=== PATIENT | female | born 1985 | race Hispanic/Latino ===

== ENCOUNTER 2025-02-23 16:45 | Emergency (ER) | payer BC ==
--- OUTSIDE RECORDS SUMMARY | 2025-02-23 16:49 | XMS REPORT | Continuity of Care Document ---
Author Name Unknown Address [address] [place] [address] [facility] Address [address] [place] [address] Care Team Providers Care Christian Education Director Name Role Phone Ernestine Reeder Attending Clinician Un available Ulises Quiroz Admitting Clinician Unavailable Payers Payer Name Policy Type Policy Number Effective Date Expirati on Date Source Problems Condition Name Condition Details Condition Category Status Onset Date Resolution Date Last Treatment Date Treating Clinician Comments Source Headache (finding) Headache (finding) Active Problem 01/13/2023 [facility] [place] Problem Active 2023-01-13 14:24:33 Kalie Agarwal Hypertensi ve disorder, systemic arterial (disorder) Hypertensi ve disorder, systemic arterial (disorder) Active Problem 01/13/2023 [facility] [place] Problem Active 2023-01-13 14:24:33 Kalie Agarwal Migraine (disorder) Migraine (disorder) Active Problem 01/13/2023 [facility] [place] Problem Active 2023-01-13 14:24:33 Memroscoe Agarwal Syncope (disorder) Syncope (disorder) Active Problem 01/13/2023 [facility] [place] Problem Active 2023-01-13 14:24:33 Memoria anthony Agarwal Allergies, Adverse Reactions, Alerts Allergy Name Allergy Type Status Severity Reaction(s) Onset Date Inactive Date Treating Clinician Comments Source No Known Allergie s DA Active U 2 00:00: 00 [facility] [place], [facility] No Known Medicati on Allergie s No Known Medicati on Allergie s Active Kalie Agarwal Social History Smoking Status Start Date Stop Date Source Tobacco smoking status 2022-08-30 21:23:57 [facility] [place] Medications Ordered Medication Name Filled Medication Name Start Date Stop Date Current Medication? 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 Kalie Agarwal Nebivolol 10 mg oral tablet 2021-10 16:39: 00 Yes TAKE ONE (1) TABLET(S) BY MOUTH ONCE A DAY NEEDED. Kalie Agarwal Ubrelvy 100 mg oral tablet 2021-10 16:39: 00 Yes 100 mg = 1 tab, PO, PRN, PRN Other -See Comment, # 16 tab, 0 Refill(s), For Migraine. May repeat dose after 2 hours. Max dose 200 mg/ 24 hours Kalie Agarwal Vital Signs Vital Name Observation Time Observation Value Comments S ource Systolic (mm Hg) 2022-08-30 21:23:00 [facility] Diastolic (mm Hg) 2022-08-30 21:23:00 [facility] Heart Rate 2022-08-30 21:23:00 [facility] Height 2022-08-30 21:23:00 5 [ft_i] [facility] [place] Weight 2022-08-30 21:23:00 [facility] [place] BMI Calculated 2022-08-30 21:23:00 [facility] Systolic (mm Hg) 2022-07-29 16:36:00 [facility] Diastolic (mm Hg) 2022-07-29 16:36:00 [facility] [place] Heart Rate 2022-07-29 16:36:00 [facility] [place] Height 2022-07-29 16:36:00 5 [ft_i] [facility] Weight 2022-07-29 16:36:00 [facility] [place] BMI Calculated 2022-07-29 16:36:00 [facility] Procedures Procedure Date / Time Performed Performing Clinician Source Chemodenervation of muscle(s); muscle(s) innervated by facial, trigeminal, cervical spinal and accessory nerves, bilateral (eg, for chronic migraine) 2023-01-10 16:08:00 [facility] [place] Thumb surgery [facility] Ashtyn nn Tubal ligation [facility] Herm sandoval Cerclage [facility] Marquise n Hysterectomy [facility] Marquise n Encounters Start Date/Time End Date/Time Encounter Type Admission Type Attending Clinicians Care Facility Care Department Encounter ID Source 2023-04-17 10:45:00 2023-04-17 10:45:00 Outpatient [facility] [id number] [facility]ie [facility] 2023-01-10 14:15:00 2023-01-11 04:59:59 Outpatient [facility] [place] [id number] Kalie l [facility] 2022-10-17 16:30:00 2022-10-18 05:59:59 [facility]patient [facility] [place] [id number] [facility]ie [facility] 2022-08-30 21:30:00 2022-08-31 05:59:59 Outpatient [facility] [place] [id number] [facility] [place] 2022-08-12 18:00:00 2022-08-13 04:59:59 Outpatient nullFlavo r [facility] [place] [id number] Kalie Agarwal 2022-07-29 16:15:00 2022-07-30 04:59:59 Outpatient nullFlavo r [facility] [place] [id number] Kalie Agarwal 2022-04-07 11:45:00 2022-04-07 11:45:00 Outpatient Ernestine Jones [facility] [id number] [facility] [place] 2022-04-07 11:45:00 2022-04-07 11:45:00 Outpatient Ernestine Jones [facility] [id number] [facility] [place] 2022-03-09 15:30:00 2022-03-09 15:30:00 Ambulatory Pre-Reg nullFlavo r [facility] [place] [id number] Kalie Agarwal Results Test Description Test Time Test Comments Results Result Co mments Source COVID 19 INHOUSE [id number] 15:15:00* Test Item Value Reference Range Interpretation Comme nts COVID 19 INHOUSE AG (test code = [id number]) NEGATIVE Negative Per mathematician , negative results should be treated aspresumptive and, if inconsistent with clinical signs andsymptoms or necessary for patient management, should betested with an alternative molecular assay. Negative resultsdo not preclude SARS-CoV-2 infection and should not be usedas the sole basis for patient management decisions. Negative results should be considered in the context of apatient's recent exposures, history, presence of clinicalsigns and symptoms consistent with COVID-19. CBC W/AUTO [id number] 15:06:00* Test Item Value Reference Range Interpretation Comme nts WHITE BLOOD CELL (test code = WBC) 7.8 K/mm3 3.5-11.0 N RED BLOOD CELL (test code = RBC) 4.57 M/mm3 4.70-6.10 L HEMOGLOBIN (test code = HGB) 13.7 G/DL 10.4-14.9 N HEMATOCRIT (test code = HCT) 40.9 % 31.5-44.1 N MEAN CELL VOLUME (test code = MCV) 89.5 Fl 84.5-98.6 N MEAN CELL HGB (test code = MCH) 30.0 pg 27.0-34.2 N MEAN CELL HGB CONCETRATION (test code = MCHC) 33.5 G/DL 31.5-34.0 N RED CELL DISTRIBUTION WIDTH (test code = RDW) 12.8 SD 11.5-14.5 N PLATELET COUNT (test code = PLT) 307 K/mm3 150-450 N MEAN PLATELET VOLUME (test c ode = MPV) 10.10 fL 7.0-10.5 N NEUTROPHIL % (test code = NT%) 66.1 % 40-76 N IMMATURE GRANULOCYTE % (test code = IG%) 0.1 % 0.0-5.0 N LYMPHOCYTE % (test code = LY%) 26.9 % 20.5-51.1 N MONOCYTE % (test code = MO%) 6.1 % 1.7-9.3 N EOSINOPHIL % (test code = EO%) 0.5 % 0.0-6.0 N BASOPHIL % (test code = BA%) 0.3 % 0.0-2.0 N NUCLEATED RBC % (test code = NRBC%) 0.0 /100WBC% 0.0-1.0 N NEUTROPHIL # (test code = NT#) 5.2 K/mm3 1.8-7.6 N IMMATURE GRANULOCYTE # (test code = IG#) 0.01 x10 3/uL 0.00-0.03 N LYMPHOCYTE # (test code = LY#) 2.1 K/mm3 0.6-3.2 N MONOCYTE # (test code = MO#) 0.5 K/mm3 0.3-1.1 N EOSINOPHIL # (test code = EO#) 0.0 K/mm3 0.0-0.4 N BASOPHIL # (test code = BA#) 0.0 K/mm3 0.0-0.1 N NUCLEATED RBC # (test code = NRBC#) 0.0 K/mm3 0.0-0.1 N MANUAL DIFF REQUIRED (test c ode = MDIFF) NO DIFF/SCN CRITERIA URINALYSIS [id number] 15:02:00* Test Item Value Reference Range Interpretation Comme nts UA GLUCOSE DIPSTICK (test code = DGLUU) NEGATIVE mg/dL NEG UA BILIRUBIN DIPSTICK (test code = BILU) NEGATIVE mg/dL NEG UA KETONE DIPSTICK (test code = KETU) NEGATIVE mg/dL NEG UA SPECIFIC GRAVITY (test code = SGU) 1.015 SG 1.005-1.030 UA BLOOD DIPSTICK (test code = AJ) TRACE mg/DL NEG A UA PH DIPSTICK (test code = JOSE) 7.0 pH UNITS 5.0-7.0 UA PROTEIN DIPSTICK (test code = PROU) NEGATIVE mg/dL NEG UA UROBILINIOGEN DIPSTICK (test code = URO) 0.2 mg/dL <2.0 UA NITRITE DIPSTICK (test code = CATHERINE) NEGATIVE SCREEN NEG UA LEUKOCYTE ESTERASE DIPSTICK (test code = LEUU) NEGATIVE Leuk/mcL NEGATIVE Urine Specimen Type: Clean CatchUR HCG [id number] 15:02:00* Test Item Value Reference Range Interpretation Comme nts UR HCG QUAL (test code = HCGQLU) NEGATIVE NEGATIVE Urine Specimen Type: Clean Catch Notes Date/Time Note Provider Source 2022-04-08 07:20:00 [id number] [place] [address] PATIENT NAME: GINO ALVAREZ ADMIT DATE: 04/07/22 ACCOUNT NO: [id number] ROOM NO: AGE: 36 REPORT TYPE: OPERATIVE REPORT SEX: F ADMITTING PHYSICIAN: ATTENDING PHYSICIAN: Ernestine Reeder MD OPERATION DATE: 04/07/2022 PREOPERATIVE DIAGNOSES: AUB-O/A and history of cervical dysplasia. POSTOPERATIVE DIAGNOSES: AUB-O/A and history of cervical dysplasia. PROCEDURES PERFORMED: Robotic-assisted total laparoscopic hysterectomy and bilateral salpingectomy. SURGEON: Ernestine Reeder MD [employer] ART[employer]ERY: Mario Marinelli. ANESTHESIA: General. SPECIMENS: Uterus and tubes. COMPLICATIONS: No complications. DRAINS: No drains. CONDITION: The patient's condition is stable. ESTIMATED BLOOD LOSS: 50 mL. FINDINGS: Normal ovaries. No endometriosis. URINE OUTPUT: 100 mL. FLUIDS: 1500 LR. INDICATIONS: The patient is a 36-year-old female who presented with significant bleeding, history of cervical insufficiency, cerclages and then due to cervical dysplasia had conization of her cervix. No current dysplasia. Endometrial sampling was negative for any atypia or malignancy. I discussed about all different options conservative including an ablation, IUD COCs, and hysterectomy. Given her previous issues with dysplasia as well as the significant amount of bleeding that she has, the patient preferred to proceed with hysterectomy. She had failed other conservative methods and measures in the past and was not interested in trying that anymore. After the consent was re-verified, she was taken back to the OR, placed in PATIENT NAME: GINO ALVAREZ supine fashion on the operating table. General anesthesia was given. She was placed in the dorsal lithotomy position in Cole stirrups. Abdomen, vulva, vagina, and perineum prepped and draped in sterile fashion. Russell was placed to drain the bladder and attached for retrograde filling. A large VCare introduced into the uterus and fixed in place. A 15 cm above the pubic symphysis slightly 4 cm above the upper border of the umbilicus, a midline incision was made 1 cm. Fascia was incised, tagged with 0 Vicryl sutures. Peritoneum entered sharply. S retractors were placed in the middle. Brennen was introduced and fixed in place. After adequate insufflation, the site of entry was checked as well and was unremarkable with the camera, upper abdominal survey was unremarkable as well. Two 8 ports were placed 10 cm lateral to the midline incision in the same horizontal plane and then triangulated right upper quadrant incision was made 8 mm for a 5 AirSeal port. The patient was placed in T-buhmi about 20 degrees. Then, the robot was docked, the camera was docked inserted, targeted, once the targeting was complete, the arms were docked as well. Then, the fenestrated bipolar and scissors were taken attached to electric current respectively and then they were positioned into the abdomen carefully under direct supervision. The ports were burped and once everything was ready moved on to the console. Thorough inspection of the peritoneal cavity was conducted and ovaries were unremarkable, tubes with evidence of tubal ligation and enlarged uterus, most likely a leiomyoma or an adenomyoma on the on the top right and no other peritoneal implants seen. Anatomy of the ureters undistorted, uterosacral ligaments undisturbed as well. Mesosalpinx was opened up. Tube was taken down with the help of the monopolar just to incise and open and separate the mesosalpinx, then similar dissection on the right side as well. Then, the peritoneum opened up inferior to the round ligament, opening up the bladder flap all the way to the opposite round ligament taken down the bladder on the anterior vaginal wall, exposing it ____ on the VCare cup. Then, posteriorly peritoneum was incised in the posterior aspect of the vaginal cuff between the two uterosacrals. Then, the scissors were swapped to a vessel to a vessel sealer. Tubes on both sides were taken and retrieved, then uteroovarian ligament and round ligament were taken down with the LigaSure on the left side. The dissection of the posterior peritoneum conducted all the way to the level of the uterosacral. Then broad ligament taken down and vessels skeletonized and exposed. Similar dissection was performed on the opposite side, taking down the utero-ovarian round, broad and exposing the vessels. The vessels were taken down with the help of the bipolar vessel sealer on both sides and this was swapped to scissors, then a cut was made in the medial aspect of the vessels and the cardinal ligaments and then the pedicle was taken down with the help of the bipolar tip all the way down and scissors used to cut down to expose the cup, first on the right side, then on the left side, then circumferential colpotomy performed with the monopolar hook blade, completed and connecting the anterior to posterior and specimen detached and pulled out through the vagina. There was excellent hemostasis. After irrigation and suction, the pneumo-occluder was placed. A 0 Vicryl simple sutures were placed at both PATIENT NAME: GINO ALVAREZ angles and not tied outside the angle for hemostasis. Then, V-Loc was taken in a continuous running fashion, completed closure and 2 layers. Thorough irrigation and suction were performed. All pedicles were hemostatic. No evidence of electrical, mechanical or thermal injury to the ureters. After coming back and scrubbing into the case, the ports were removed under direct vision, injected the areas with Marcaine at the start and the end of the case. Gas was desufflated through the AirSeal completely. All ports were removed. The fascial incision at the umbilicus was closed with the help of 0 Vicryl sutures tacked to the fascial edges tied to each other, then 4-0 Vicryl continuous for the closure of the supraumbilical incision and interrupted Vicryl sutures for the others. The pneumo-occluder and the Russell were removed. Instrument and sponge counts were correct at the end of case. The patient tolerated the procedure well. EBL was 50 mL. Urine output as dictated 100. She was recovered. Instrument and sponge counts were correct. She was taken back to the recovery room in stable condition after extubation in the OR. The patient's was debriefed about her procedure to his satisfaction. Dictated By: Ernestine Reeder MD WT: OP:LAMARIS/MIGUEL ANGEL/RUBIN Conf#: [id number]/DID#: [id number] Authenticated and Edited by Ernestine Reeder MD On 04/21/22 2:36:37 PM at 0239 PATIENT NAME: GINO ALVAREZ [facility] 2022-04-07 13:15:00 [facility] ([facility]) Brief Op Note REPORT#:[id number] REPORT STATUS: Signed DATE:04/07/22 TIME:1315 PATIENT: GINO ALVAREZ UNIT #: [id number] ROOM/BED: : 84 AGE: 36 SEX: F ATTEND: Ernestine Reeder MD [facility] AUTHOR: Ernestine Reeder MD * ALL edits or amendments must be made on the electronic/computer document * Op/Inv Proc Note - Brief Pre-procedure diagnosis: AUB-O/A, Hx of cervical dysplasia Post-procedure diagnosis: same as pre procedure dx Procedures performed: RTLH BS Primary Surgeon: mathew Headend Technician(s): mario marinelli Anesthesia: general anesthesia Findings: normal ovaries Complications: none Estimated blood loss in ml's: 50 Specimens removed/altered: uterus tubes Drain(s): None Fluids: 1500 LR Urine output: 100 Approach: laparoscopic, robotic Wound class: clean-contaminated Disposition: plan to D/C home Counts: Sponge count: correct Instrument count: correct Needle count: correct at 1532 RPT #: [id number] END OF REPORT HCAPM
[2025-02-23 17:35] LABS: Absolute Basophils 0.1 K/uL (0-0.5); Absolute Lymphocytes (CBC) 1.4 K/uL (0.7-4.9); Absolute Monocytes 0.3 K/uL (0.1-1.3); Absolute Neutrophil 7.1 K/uL (1.8-8.0); Basophils % 0.7 % (0-1.3); Eosinophils % 0.3 % (0-4.4); Hematocrit 41.1 % (36.0-45.0); Hemoglobin 14.4 g/dL (12.0-15.0); MCH 31.8 pg (27.0-35.0); MCHC 35.1 g/dL (32.0-36.0); MCV 90.5 fL (80-100); MPV 8.3 fL (7.6-11.3); Monocytes % 3.9 % (3.3-12.3); Neutrophils % 79.1 % (41.7-73.7); Platelets 376 thou/uL (152-406); RBC Red Blood Cell Count 4.54 M/uL (3.86-4.86); Red Cell Distribution Width 13.2 % (12.1-15.2)
[2025-02-23] MEDS ORDERED: KETOROLAC 30 MG/ML INJ ONE (17:37)
[2025-02-23] MEDS ORDERED: DIPHENHYDRAMINE 50 MG/ML VIAL ONE (17:37)
[2025-02-23] MEDS ORDERED: NA CHLORIDE 0.9% 50 ML ONE (17:38)
[2025-02-23] MEDS ORDERED: METOCLOPRAMIDE 10 MG/2mL INJ ONE (17:38)
[2025-02-23] MEDS ORDERED: NA CHLORIDE 0.9% 1,000 ML ONE (17:38)
[2025-02-23 17:50] LABS: Albumin 3.6 g/dL (3.4-5.0); Alkaline Phosphatase 64 U/L (45-117); Anion Gap 11.6 mEq/L (5.0-15.0); BUN Blood Urea Nitrogen 13 mg/dL (7-18); Bicarbonate 28 mEq/L (21-32); Bilirubin Total 0.2 mg/dL (0.2-1.0); Globulin 3.7 g/dL (2.3-3.5); Glomerular Filtration Rate 85 ml/min (=/>90); Glucose Level 116 mg/dL (74-106); Lipase 15 U/L (13-75); Potassium 3.6 mEq/L (3.5-5.1); Protein, Total 7.3 g/dL (6.4-8.2); Sodium Level 140 mEq/L (136-145)
[2025-02-23] MEDS ORDERED: MORPHINE 4 MG/ML SYR ONE (18:08)
[2025-02-23 18:32] LABS: ALT/SGPT < 14 U/L (13-56); AST/SGOT < 10 U/L (15-37)
[2025-02-23 19:43] LABS: Specific Gravity 1.025 (1.005-1.030); Sqamous Epithelial <5 /HPF (None Seen); Urine Bacteria None Seen /HPF (<20); Urine Bilirubin NEGATIVE (Negative); Urine Blood Negative (Negative); Urine Clarity Turbid (Clear); Urine Color Yellow (Yellow); Urine Culture Reflex Order NOT NEEDED; Urine Glucose NEGATIVE (Negative); Urine Ketones 2+ (Negative); Urine Microscopic Reflex YN ORDER UMIC; Urine Mucus 4+ /HPF (None Seen); Urine Nitrite NEGATIVE (Negative); Urine Protein TRACE (Negative); Urine Urobilinogen Normal (Normal); Urine WBC <5 /HPF (<5); Urine pH 6.5 (5.0-7.0)
[2025-02-23 19:44] LABS: Specific Gravity 1.025 (1.005-1.030)
--- NOTE | 2025-02-23 20:50 | RAD REPORT ---
EXAMINATION: Abdomen Pelvis W Contrast CLINICAL INDICATION: Female, 39 years old.lower abdomen pain TECHNIQUE: CT abdomen and pelvis was performed, after the administration of IV contrast, as per [facility] protocol. Axial, sagittal and coronal reconstructions were obtained. One or more of the following dose reduction techniques were used: Automated exposure control, adjustment of the mA and/o r kV according to patient size, and/or iterative reconstruction. Unless otherwise specified, incidental findings do not require dedicated imaging follow-up. [id number]. COMPARISON: No prior exam. FINDINGS: LOWER CHEST: No acute process identified.No significant pericardial effusion. UPPER GI: No significant abnormality. LIVER: No significant focal abnormality. GALLBLADDER/BILE DUCTS: No biliary ductal dilatation.? PANCREAS: No mass, ductal dilation, or esperanza-pancreatic fluid. SPLEEN: Unremarkable. ADRENALS: No adrenal masses. KIDNEYS AND URETERS: No hydronephrosis.Low density and/or too small to characterize renal lesions whi ch are statistically benign. ABDOMINAL AORTA AND OTHER VESSELS: Normal caliber aorta and IVC. PERITONEUM: Small volume of pelvic free fluid which is likely physiologic. LYMPH NODES: No pathologic lymphadenopathy. ABDOMINAL WALL: Unremarkable SMALL BOWEL/COLON: Small bowel has normal course and caliber. No colonic wall thickening or pericolon ic inflammatory changes.Normal appendix. URINARY BLADDER: Decompressed, not well assessed. REPRODUCTIVE ORGANS: Bilateral adnexal fullness likely some mildly enlarged ovaries with without smal l lesions which has been seen on prior imaging. This could be further evaluated with pelvic ultrasound if indicated. MUSCULOSKELETAL: No acute or suspicious osseous abnormality. ADDITIONAL FINDINGS: None. IMPRESSION: No acute findings within the abdomen or pelvis. Prominent ovaries bilaterally which was also present on the CT from 01/20/2023. Small volume of pelvic free fluid which is likely physiologic. If concern for an adnexal pathology, ultrasound could further evaluate.
--- NOTE | 2025-02-23 21:18 | ER ---
Nurse's Notes [facility] Name: Bruce Devries Age: 39 yrs Sex: Female : 1985 Arrival Date: 02/23/2025 Time: 16:45 Bed 15 Private MD: Diagnosis: Lower abdominal pain, unspecified;Nausea with vomiting, unspecified Presentation: 02/23 17:09 Chief complaint: Patient states: Lower abdominal pain and vomiting onset today. Pt cm10 states that standing makes the pain worse. Coronavirus screen: Client denies travel out of the [place] in the last 14 days. Ebola Screen: Patient denies travel to an Ebola-affected area in the 21 days before illness onset. Initial Sepsis Screen: Does the patient meet any 2 criteria? No. Patient's initial sepsis screen is negative. Does the patient have a suspected source of infection? No. Patient's initial sepsis screen is negative. Risk Assessment: Do you want to hurt yourself or someone else? Patient reports no desire to harm self or others. Onset of symptoms was February 23, 2025. 17:09 Method Of Arrival: Wheelchair cm10 17:09 Acuity: GINA 3 cm10 Triage Assessment: 17:10 General: Appears in no apparent distress. uncomfortable, Behavior is calm, cooperative. cm10 Neuro: No deficits noted. Level of Consciousness is awake, alert, obeys commands, Oriented to person, place, time, situation, Appropriate for age. Respiratory: No deficits noted. Airway is patent Respiratory effort is even, unlabored, Respiratory pattern is regular, symmetrical. DIRECTOR OF CORPORATE RESPONSIBILITY: 19:09 Not cp4 Historical: - Allergies: 17:10 No Known Allergies; cm10 - PMHx: 17:10 Hypertensive disorder; PCOS; cm10 - PSHx: 17:10 section; cm10 - Immunization history:: Adult Immunizations up to date. - Infectious Disease History:: Denies. - Social history:: Smoking status: Patient reports the use of cigarette tobacco products, smokes one pack cigarettes per day. Screenin:30 [facility] ED Fall Risk Assessment (Adult) History of falling in the last 3 months, db including since admission No falls in past 3 months (0 pts) Confusion or Disorientation No (0 pts) Intoxicated or Sedated No (0 pts) Impaired Gait No (0 pts) Mobility Assist Device Used No (0 pt) Altered Elimination No (0 pt) Score/Fall Risk Level 0 - 2 = Low Risk Oriented to surroundings, Maintained a safe environment. Abuse screen: Denies threats or abuse. Denies injuries from another. Nutritional screening: No deficits noted. Tuberculosis screening: No symptoms or risk factors identified. Assessment: 17:30 Reassessment: Patient appears in no apparent distress at this time. Patient and/or db family updated on plan of care and expected duration. Pain level reassessed. Patient is alert, oriented x 3, equal unlabored respirations, skin warm/dry/pink. General: Appears in no apparent distress. comfortable, Behavior is calm, cooperative. Pain: Complains of pain in head and abdomen. Neuro: Level of Consciousness is awake, alert, obeys commands, Oriented to person, place, time, situation. Cardiovascular: No deficits noted. Respiratory: Airway is patent Respiratory effort is even, unlabored, Respiratory pattern is regular, symmetrical. GI: Abdomen is flat, non-distended, Bowel sounds present X 4 quads. Abd is soft Reports lower abdominal pain. : No deficits noted. No signs and/or symptoms were reported regarding the genitourinary system. EENT: No deficits noted. No signs and/or symptoms were reported regarding the EENT system. 19:09 Reassessment: Patient appears in no apparent distress at this time. No changes from cp4 previously documented assessment. Patient and/or family updated on plan of care and expected duration. Pain level reassessed. Patient is alert, oriented x 3, equal unlabored respirations, skin warm/dry/pink. 19:53 Reassessment: Patient to CT. cp4 Vital Signs: 17:09 BP 139 / 96; Pulse 89; Resp 18; Temp 98.1(O); Pulse Ox 97% on R/A; Weight 65.77 kg; cm10 Height 5 ft. 1 in. ; Pain 10/10; 17:45 BP 154 / 107; Pulse 76; Resp 16; Pulse Ox 97% on R/A; db 18:00 BP 153 / 100; Pulse 91; Resp 18; Pulse Ox 100% on R/A; db 18:30 BP 141 / 78; Pulse 83; Resp 16; Pulse Ox 97% on R/A; db 20:00 BP 125 / 83; Pulse 91; Resp 16; Pulse Ox 98% ; cp4 21:52 BP 118 / 80; Pulse 78; Resp 16; Pulse Ox 99% ; cp4 17:09 Body Mass Index 27.40 (65.77 kg, 154.94 cm) cm10 17:09 Pain Scale: Adult cm10 ED Course: 16:48 Patient arrived in ED. al6 17:05 Bhargav Mckeon PA is PHCP. cp 17:05 Bryan Shukla MD is Attending Physician. cp 17:10 Triage completed. cm10 17:10 Arm band placed on right wrist. Patient placed in an exam room, on a stretcher. cm10 17:22 Initial lab(s) drawn, by me, sent to lab. Inserted saline lock: 20 gauge in right db antecubital area, using aseptic technique. Blood collected. Flushed with 10 mL NS. 18:04 Saadia Martínez, RN is Primary Nurse. db 18:30 Patient has correct armband on for positive identification. Bed in low position. Call db light in reach. Side rails up X 1. Provided Education on: MEDICATIONS AND LABS. Pulse ox on. NIBP on. Warm blanket given. Pillow given. 18:38 Radiology exam delayed due to test not completed at this time. sm9 19:09 Mariel Franklin is Primary Nurse. cp4 19:24 Radiology exam delayed due to test not completed at this time. sm9 19:25 Urine collected: clean catch specimen, tea colored. td1 20:31 CT Abd/Pelvis - IV Contrast Only In Process Unspecified. EDMS 22:00 No provider procedures requiring assistance completed. intact, bleeding controlled, No cp4 redness/swelling at site. Pressure dressing applied. Administered Medications: 17:35 Drug: NS 0.9% IV 1000 ml IV at 1 bolus Per protocol; to be given as a bolus over 60 db minutes Route: IV; Rate: 1 bolus; Site: left antecubital; 22:11 Follow up: Response: No adverse reaction; IV Status: Completed infusion cp4 17:35 Drug: Ketorolac IVP 15 mg IVP once Route: IVP; Site: left antecubital; db 18:21 Follow up: Response: No adverse reaction; No change in condition; Pain is unchanged, db physician notified 17:35 Drug: metoCLOPramide IVP 10 mg IVP once; over 1 to 2 minutes Route: IVP; Site: left db antecubital; 18:21 Follow up: Response: No adverse reaction db 17:35 Drug: diphenhydrAMINE IVP 25 mg IVP once Route: IVP; Site: left antecubital; db 18:21 Follow up: Response: No adverse reaction db 18:15 Drug: morphine IVP or IV 4 mg IVP once over 4 mins Route: IVP; Infused Over: 4 mins; db Site: left antecubital; 21:24 Follow up: Response: No adverse reaction cp4 Medication: 18:30 VIS not applicable for this client. db Outcome: 21:17 Discharge ordered by MD. cp 22:00 Discharged to home ambulatory, cp4 22:00 Condition: stable 22:00 Discharge instructions given to patient, family, Instructed on discharge instructions, follow up and referral plans. medication usage, Demonstrated understanding of instructions, follow-up care, medications, Prescriptions given X 2, 22:10 Patient left the ED. cp4 Signatures: Dispatcher [employer] EDMS Bhargav Mckeon PA PA cp Benton, Danielle, RN RN db Sharon Rockwell RN RN cm10 Mariel Franklin cp4 Ade Rdz sm9 Faina Hudson al6 Richardson Salgado td1
--- NOTE | 2025-02-23 21:18 | EDPHYS ---
Physician Documentation [facility] Name: Bruce Devries Age: 39 yrs Sex: Female : 1985 Arrival Date: 02/23/2025 Time: 16:45 Bed 15 Private MD: ED Physician Bryan Shukla HPI: 02/23 17:25 This 39 yrs old Female presents to ER via Wheelchair with complaints of cp Abdominal Pain, Vomiting. 17:25 The patient presents with abdominal pain in the lower abdomen. Onset: The cp symptoms/episode began/occurred today. The symptoms radiate to low back. Associated signs and symptoms: Pertinent positives: nausea and vomiting, Pertinent negatives: constipation, diarrhea, fever, hematuria. The symptoms are described as constant. Modifying factors: the symptoms are aggravated by standing. 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 - Infectious Disease History:: Denies. - Social history:: Smoking status: Patient reports the use of cigarette tobacco products, smokes one pack cigarettes per day. ROS: 17:30 Constitutional: Negative for body aches, chills, fever, poor PO intake, cp 17:30 Eyes: Negative for injury, pain, redness, and discharge, cp 17:30 Cardiovascular: Negative for chest pain, palpitations, 17:30 Respiratory: Negative for cough, shortness of breath, wheezing, 17:30 Abdomen/GI: Positive for abdominal pain, of the right lower quadrant and left lower quadrant, Negative for diarrhea, constipation, active vomiting, 17:30 Back: Positive for radiated pain, of the low back area, 17:30 : Negative for urinary symptoms, vaginal bleeding, 17:30 All other systems are negative, Exam: 17:33 Constitutional: The patient appears in no acute distress, alert, awake, non-toxic, well cp developed, well nourished, uncomfortable, 17:33 Head/Face: Normocephalic, atraumatic. cp 17:33 Eyes: Periorbital structures: appear normal, Conjunctiva: normal, no exudate, no injection, Sclera: no appreciated abnormality, Lids and lashes: appear normal, bilaterally, 17:33 ENT: External ear(s): are unremarkable, Nose: is normal, Mouth: Lips: moist, Oral mucosa: moist, Posterior pharynx: Airway: no evidence of obstruction, patent, 17:33 Chest/axilla: Inspection: normal, 17:33 Cardiovascular: Rate: normal, Rhythm: regular, Edema: is not appreciated, JVD: is not appreciated, 17:33 Respiratory: the patient does not display signs of respiratory distress, Respirations: normal, no use of accessory muscles, no retractions, labored breathing, is not present, Breath sounds: are clear throughout, no decreased breath sounds, no stridor, no wheezing, 17:33 Abdomen/GI: Inspection: abdomen appears normal, Bowel sounds: active, all quadrants, Palpation: soft, in all quadrants, severe abdominal tenderness, in the right lower quadrant and left lower quadrant, rebound tenderness, is not appreciated, voluntary guarding, is elicited in the right lower quadrant and left lower quadrant, 17:33 Back: CVA tenderness, is absent, 17:33 Neuro: Orientation: to person, place \T\ time. Mentation: is normal, Motor: moves all fours, strength is normal, Sensation: no obvious gross deficits, Vital Signs: 17:09 BP 139 / 96; Pulse 89; Resp 18; Temp 98.1(O); Pulse Ox 97% on R/A; Weight 65.77 kg; cm10 Height 5 ft. 1 in. ; Pain 10/10; 17:45 BP 154 / 107; Pulse 76; Resp 16; Pulse Ox 97% on R/A; db 18:00 BP 153 / 100; Pulse 91; Resp 18; Pulse Ox 100% on R/A; db 18:30 BP 141 / 78; Pulse 83; Resp 16; Pulse Ox 97% on R/A; db 20:00 BP 125 / 83; Pulse 91; Resp 16; Pulse Ox 98% ; cp4 21:52 BP 118 / 80; Pulse 78; Resp 16; Pulse Ox 99% ; cp4 17:09 Body Mass Index 27.40 (65.77 kg, 154.94 cm) cm10 17:09 Pain Scale: Adult cm10 MDM: 18:00 Differential diagnosis: appendicitis, Endometriosis, non-specific abd pain, cp Pyelonephritis, Ureterolithiasis, urinary tract infection, ovarian cyst. 21:17 Medical Screening Exam initiated 21:17 Data reviewed: vital signs, nurses notes, lab test result(s), radiologic studies, CT cp scan, and as a result, I will discharge patient. 21:17 I considered the following discharge prescriptions or medication management in the emergency department Medications were administered in the Emergency Department. See MAR. Counseling: I had a detailed discussion with the patient and/or guardian regarding the historical points, exam findings, and any diagnostic results supporting the discharge/admit diagnosis, lab results, radiology results, to return to the emergency department if symptoms worsen or persist or if there are any questions or concerns that arise at home. Response to treatment: the patient's symptoms have mildly improved after treatment, and as a result, I will discharge patient. Special discussion: Based on the patient's Hx, exam, and Dx evaluation, there is no indication for emergent surgery or inpatient Tx. It is understood by the patient/guardian that if the Sx's persist or worsen they need to return immediately for re-evaluation. 02/23 17:19 Order name: CBC with Diff; Complete Time: 18:44 18 18:44 Interpretation: Normal except: RAPHAEL% 79.1. 02/23 17:19 Order name: CMP; Complete Time: 18:44 02/23 20:22 Interpretation: Normal except: GLUC 116; GFR 85; AST < 10; GLOB 3.7; A/G 1.0. 02/23 17:19 Order name: Lipase; Complete Time: 18:44 02/23 17:19 Order name: Test, Urine; Complete Time: 20:22 02/23 20:22 Interpretation: Reviewed. 02/23 17:19 Order name: UA Rfx Gustavo Cult if indicated; Complete Time: 20:22 02/23 20:22 Interpretation: Normal except: UCLA Turbid; UKET 2+; UPROT TRACE; URBC 5-10; MUCUS 4+. 02/23 17:32 Order name: CT Abd/Pelvis - IV Contrast Only; Complete Time: 21:12 02/23 21:13 Interpretation: Report reviewed. 02/23 17:19 Order name: IV Saline Lock; Complete Time: 17:25 02/23 17:19 Order name: Labs collected and sent; Complete Time: 17:25 02/23 21:13 Order name: PO challenge; Complete Time: 22:00 cp Administered Medications: 17:35 Drug: NS 0.9% IV 1000 ml IV at 1 bolus Per protocol; to be given as a bolus over 60 db minutes Route: IV; Rate: 1 bolus; Site: left antecubital; 22:11 Follow up: Response: No adverse reaction; IV Status: Completed infusion cp4 17:35 Drug: Ketorolac IVP 15 mg IVP once Route: IVP; Site: left antecubital; db 18:21 Follow up: Response: No adverse reaction; No change in condition; Pain is unchanged, db physician notified 17:35 Drug: metoCLOPramide IVP 10 mg IVP once; over 1 to 2 minutes Route: IVP; Site: left db antecubital; 18:21 Follow up: Response: No adverse reaction db 17:35 Drug: diphenhydrAMINE IVP 25 mg IVP once Route: IVP; Site: left antecubital; db 18:21 Follow up: Response: No adverse reaction db 18:15 Drug: morphine IVP or IV 4 mg IVP once over 4 mins Route: IVP; Infused Over: 4 mins; db Site: left antecubital; 21:24 Follow up: Response: No adverse reaction cp4 Disposition Summary: 02/23/25 21:17 Discharge Ordered Notes: Location: Home cp Problem: new cp Symptoms: have improved cp Condition: Stable cp Diagnosis - Lower abdominal pain, unspecified cp - Nausea with vomiting, unspecified cp Followup: cp - With: Private Physician - When: 2 - 3 days - Reason: Worsening of condition Discharge Instructions: - Discharge Summary Sheet cp - Abdominal Pain, Adult cp - Nausea and Vomiting, Adult cp Forms: - Medication Reconciliation Form cp - Antibiotic Education cp - Prescription Opioid Use cp - Patient Portal Instructions cp - Leadership Thank You Letter cp Prescriptions: - Reglan 10 mg Oral Tablet - take 1 tablet ORAL route every 6 hours take 30 minutes before meals and at cp bedtime; 20 tablet; Refills: 0, Product Selection Permitted - Diclofenac Sodium 75 mg Oral Tablet Sustained Release - take 1 tablet ORAL route 2 times per day; 30 tablet; Refills: 0, Product cp Selection Permitted Signatures: Dispatcher [employer] EDBhargav Lomas PA PA cp Saadia Martínez RN RN db Sharon Rockwell RN RN cm10 Mariel Franklin cp4 Corrections: (The following items were deleted from the chart) 17:19 17:19 CBC+H.LAB.BRZ ordered. EDMS EDMS 17: 17:19 COMPREHENSIVE METABOLIC PANEL+C.LAB.BRZ ordered. EDMS EDMS 17: 17:19 LIPASE+C.LAB.BRZ ordered. EDMS EDMS : 17:19 Test, Urine+UC.LAB.BRZ ordered. EDMS EDMS 17: 17:19 UA Rfx Gustavo Cult if indicated+U.LAB.BRZ ordered. EDMS EDMS
[2025-02-23 22:25] VITALS: TEMP 98.1
[2025-02-23 22:35] VITALS: BP 118/80; O2SAT 99
== END 2025-02-23 22:10 | disposition home or self-care (01) ==
LOC: ER 16:45
DX: R10.31 Right lower quadrant pain (principal); R11.2 Nausea with vomiting, unspecified; R10.32 Left lower quadrant pain; F17.210 Nicotine dependence, cigarettes, uncomplicated
CPT/HCPCS: 96361; 85025; 81001; 36415; 81025; 83690; 80053; 74177; 96375; 96374; 99284; Q9967; J2765; J1200; J7030